=== PATIENT | male | born 1950 | race Caucasian/White ===

== ENCOUNTER 2022-02-04 15:38 | Emergency (ER) | payer OTHER, MEDICAID ==
[~2022-02-04] VITALS: Ht 185.4 cm; Wt 79.0 kg
[2022-02-04] MEDS ORDERED: LIDOCAINE HCL/PF 1% 10 MG/ML 5ML VIAL INFIL ONE (16:30)
[2022-02-04] MEDS ORDERED: BACITRACIN ZINC OINT UDPKT TOP ONE (16:30)
[2022-02-04] MEDS ORDERED: TETANUS, DIPHTHERIA, PERTUSSIS VAC/PF 0.5ML (>10YR OLD) IM ONE (16:30)
[2022-02-04] MEDS ORDERED: ACETAMINOPHEN 500MG TABLET PO ONE (16:30)
[2022-02-04] MEDS ORDERED: ACET-2708 MT (17:35)
[2022-02-04] MEDS ORDERED: BO1 TP (17:35)
[2022-02-04 19:00] VITALS: BP 112/78
== END 2022-02-04 19:00 | disposition home or self-care (01) ==
LOC: ER 15:38
DX: S00.83XA Contusion of other part of head, initial encounter (principal); W18.39XA Other fall on same level, initial encounter; Y93.89 Activity, other specified; Y92.89 Other specified places as the place of occurrence of the external cause; Y99.8 Other external cause status
CPT/HCPCS: 12001; 12011; 70450; 70486; 90471; 90715; 99284; J3490